=== PATIENT | male | born 1990 | race Two or more races ===

== ENCOUNTER 2024-08-21 20:08 | Emergency (ER) | payer BC, OTHER, SELFPAY ==
[2024-08-21 20:09] VITALS: BMI 27.4
[2024-08-21 20:22] VITALS: BP 136/83; PULSE 116; RESP 20; TEMP 39.4; O2SAT 97
--- NOTE | 2024-08-21 20:33 | XR_ITS ---
Examination: PA lateral chest 2 views Technique: Upright PA lateral chest 2 views Exam date and time: August 21, 20242047 hrs. Indications: Fever chest pain today Findings: Normal heart size Lungs are clear. The osseous structures are intact Impression: No active disease
--- NOTE | 2024-08-21 20:33 | EKG_ITS ---
[facility] Test Date: 2024-08-21 Pat Name: JONATHAN HENDERSON Department: Room: - Gender: Male Senior It Engineer: : 1990 Requested By: Dany Campbell ([facility]) Order Number: [id number] Reading MD: Dany Campbell ([facility]) Measurements Intervals [place] Rate: 107 P: 56 DE: 124 QRS: 66 QRSD: 84 T: 47 QT: 308 QTc: 412 Interpretive Statements SINUS TACHYCARDIA POSSIBLE LEFT ATRIAL ENLARGEMENT [-0.1mV P-WAVE IN V1/V2] NONSPECIFIC T-WAVE ABNORMALITY ABNORMAL RHYTHM ECG No previous ECG available for comparison /store/S0/[id number].pdf
--- NOTE | 2024-08-21 20:34 | PD.EDRME ---
Rapid Medical Screening Exam RME Arrival date/time: 08/21/24 20:08 34-year-old male past medical history of gallstones presents emergency department complaining of headache, fever, sore throat, and bodyaches that have been ongoing for 1 day. Chief Complaint: Dental/Oral/Throat Time Seen by Provider: 08/21/24 20:25 Vital signs: Vital Signs Temperature 103.0 F H 08/21/24 20:22 Pulse Rate 116 H 08/21/24 20:22 Respiratory Rate 20 08/21/24 20:22 Blood Pressure 136/83 H 08/21/24 20:22 Pulse Oximetry (%) 97 08/21/24 20:22 Oxygen Delivery Method Room Air 08/21/24 20:22 Vital signs reviewed by provider: Yes
[2024-08-21] MEDS: IBUPROFEN TAB 600 MG TABLET PO (20:43)
[2024-08-21] MEDS: ACETAMINOPHEN 500 MG TABLET 1000 MG PO (20:43)
[2024-08-21 20:59] LABS: Lactate (Lactic Acid) 1.1 mMol/L (0.4-2.0)
[2024-08-21 21:00] LABS: Basophils % (Auto) 0 % (0-2.5); Eosinophils % (Auto) 0 % (0-10); Hematocrit 43.1 % (41.0-53.0); Hemoglobin 15.8 g/dL (13.5-16.0); Immature Granulocytes % (Auto) 0 % (0-0); Immature Granulocytes Auto 0.06 Thou/mm3 (0.00-0.00); Lymphocytes # (Auto) 1.5 Thou/mm3 (1.0-4.8); Lymphocytes % (Auto) 11 % (10-50); Mean Corpuscular HGB Conc 36.7 g/dl (31.0-37.0); Mean Corpuscular Hemoglobin 30.6 pg (25.0-35.0); Mean Corpuscular Volume 84 fL (80-100); Monocytes # (Auto) 0.9 Thou/mm3 (0.0-0.8); Monocytes % (Auto) 6 % (0-12); Neutrophils # (Auto) 11.5 Thou/mm3 (1.8-7.7); Neutrophils % (Auto) 83 % (37-80); Nucleated Red Blood Cell % 0 /100 WBC (0); Platelet Count 207 Thou/mm3 (140-440); RDW Standard Deviation 37.1 fL (35.1-43.9); Red Blood Count 5.16 Miln/mm3 (4.50-5.90); White Blood Count 13.9 Thou/mm3 (3.8-10.6)
[2024-08-21 21:00] LABS: Strep A Rapid Positive (Negative)
[2024-08-21 21:17] LABS: B-Type Natriuretic Peptide < 0 pg/mL (0-100)
[2024-08-21 21:25] LABS: Alanine Aminotransferase 23 U/L (10-49); Albumin, Serum 4.7 gm/dL (3.5-5.0); Albumin/Globulin Ratio 1.7 (1.2-2.2); Alkaline Phosphatase 74 U/L (46-116); Anion Gap 6 (7-16); Aspartate Amino Transferase 14 U/L (0-34); BUN/Creatinine Ratio 12 Ratio (12-20); Blood Urea Nitrogen 12 mg/dL (9-23); Calcium 9.5 mg/dL (8.3-10.6); Calcium (Corrected) 9.5 mg/dL (8.5-10.1); Carbon Dioxide 24.6 mMol/L (20.0-31.0); Chloride 104 mMol/L (98-107); Estimated Creatinine Clearance 101.8 mL/min (>60); Globulin 2.7 gm/dL (2.3-3.5); Glucose 118 mg/dL (74-106); INR 1.1 (0.9-1.3); Lipase 29 U/L (12-53); Magnesium 1.9 mg/dL (1.6-2.6); Osmolality,Calculated 270 (275-295); Potassium 3.4 mMol/L (3.4-5.1); Prothrombin Time 11.5 Seconds (9.0-12.2); Sodium 135 mMol/L (136-145); Total Protein 7.4 gm/dL (5.7-8.2); Troponin I < 0.002 ng/mL (0.0-0.045); eGFR > 60 See Note
[2024-08-21 22:10] LABS: Collection Type, Urine Clean Catch; Squamous Epithelial Cell,Urine 0 /hpf (0-5)
[2024-08-21 22:14] LABS: Bilirubin,Urine Negative (Negative); Blood,Urine 1+ (Negative); Clarity,Urine Clear (Clear/Hazy); Color,Urine Yellow (Lt Yel-Yel); Glucose, Urine Negative (Negative); Ketones,Urine Negative (Negative); Leukocyte Esterase,Urine Negative (Negative); Nitrite,Urine Negative (Negative); Protein,Urine 1+ (Neg - Trace); RBC,Urine 17 /hpf (0-3); Specific Gravity,Urine 1.033 (1.001-1.035); WBC,Urine 1 /hpf (0-5)
[2024-08-21 22:54] VITALS: BP 105/73; PULSE 78; RESP 16; TEMP 37.3; O2SAT 99
[2024-08-21] MEDS: PENICILLIN VK 250 MG TABLET 500 MG PO (23:29)
--- NOTE | 2024-08-22 00:54 | EDNOTE_ITS ---
Upper Respiratory Inf. RME/HPI General Chief Complaint: Dental/Oral/Throat Stated Complaint: FEVER AND SORE THROAT Time Seen by Provider: 08/21/24 20:25 Source: patient Arrival date/time: 08/21/24 20:08 34-year-old male past medical history of gallstones presents emergency department complaining of headache, fever, sore throat, and bodyaches that have been ongoing for 1 day. Mode of arrival: ambulatory Limitations: no limitations RME / HPI RME / HPI Narrative: 08/21/24 20:08 34-year-old male past medical history of gallstones presents emergency department complaining of headache, fever, sore throat, and bodyaches that have been ongoing for 1 day. Related Data Previous Rx's ?Medication ?Instructions ?Recorded acetaminophen 500 mg capsule 500 mg PO Q6H PRN pain #3 0 caps 08/21/24 ibuprofen 600 mg tablet 600 mg PO Q8H PRN pain #20 t abs 08/21/24 penicillin V potassium 500 mg 500 mg PO BID 10 days #2 0 tabs 08/21/24 tablet Allergies Allergy/AdvReac Type Severity Reaction Status Date / Time No Known Allergies Allergy Verified 08/21/24 20:12 Review of Systems Review of Systems Systems Reviewed: All systems reviewed, normal except as documented Constitutional Constitutional: Reports system reviewed and no additional complaints, except as documented, Reports body ache(s), Denies chills, Reports fever(s) and Reports headache(s) Eyes Eyes: Reports system reviewed and no additional complaints, except as documented and Denies change in vision ENT Ears, Nose, Mouth, and Throat: Reports system reviewed and no additional complaints, except as documented, Denies disequilibrium, Denies dizziness, Reports headache(s), Reports sore throat and Denies vertigo Cardiovascular Cardiovascular: Reports system reviewed and no additional complaints, except as documented, Denies chest pain and Denies dyspnea Respiratory Respiratory: Reports system reviewed and no additional complaints, except as documented, Denies chest congestion, Denies cough and Denies dyspnea Gastrointestinal Gastrointestinal: Reports system reviewed and no additional complaints, except as documented, Denies abdominal pain, Denies nausea and Denies vomiting Musculoskeletal Musculoskeletal: Reports system reviewed and no additional complaints, except as documented, Denies abnormal gait and Denies arthralgias Integumentary/Breasts Skin/Breast: Reports system reviewed and no additional complaints, except as documented, Denies erythema, Denies rash and Denies wounds Neurologic Neurologic: Reports system reviewed and no additional complaints, except as documented, Denies abnormal gait, Denies disequilibrium, Denies dizziness, Reports headache(s) and Denies vertigo Past Medical History Social History SMOKING STATUS: Current some day smoker ED Exam General Limitations: Present no limitations General appearance: Present alert and in no apparent distress Head Head exam: Present atraumatic Eye Eye exam: Present normal appearance, PERRL and EOMI ENT ENT exam: Present normal exam, normal oropharynx and mucous membranes moist Expanded ENT Exam Mouth exam: Absent drooling or trismus Throat exam: Present tonsillar erythema; Absent tonsillomegaly or tonsillar exudate Neck Neck exam: Present normal inspection, full ROM and trachea midline Chest Chest inspection: Present normal inspection and symmetric chest wall rise Respiratory Respiratory exam: Present normal lung sounds bilaterally Cardiovascular Cardiovascular exam: Present regular rate, normal rhythm and normal heart sounds Abdominal Exam Abdominal exam: Present soft and normal bowel sounds Extremities Exam Extremities exam: Present normal inspection and full ROM Back Exam Back exam: Present normal inspection and full ROM Neurological Exam Neurological exam: Present alert, oriented X3 and CN II-XII intact Psychiatric Psychiatric exam: Present normal affect and normal mood Skin Skin exam: Present warm, dry, intact and normal color Course Quality Measures none Orders Category Date Time Status Bedside COVID-19 Antigen Test NOW Care 08/21/24 20:34 Completed Bedside Influenza A&B Antigen Test NOW Care 08/21/24 20:37 Completed EKG (ED ONLY) *Do not use* NOW Care 08/21/24 20:33 Completed EKG (ED Only) Stat Exams 08/21/24 20:33 Draft XR chest 2V Stat Exams 08/21/24 20:33 Completed B-Type Natriuretic Peptide Stat Lab 08/21/24 20:47 Completed Blood Culture (Lab) Stat Lab 08/21/24 20:50 Received CBC Stat Lab 08/21/24 20:47 Completed Comprehensive Metabolic Panel Stat Lab 08/21/24 20:47 Completed Lactate (Lactic Acid) Stat Lab 08/21/24 20:47 Completed Lipase Stat Lab 08/21/24 20:47 Completed Magnesium Stat Lab 08/21/24 20:47 Completed Partial Thromboplastin Time Stat Lab 08/21/24 20:47 Completed Procalcitonin Stat Lab 08/21/24 20:47 Completed Prothrombin Time with INR Stat Lab 08/21/24 20:47 Completed Strep A Rapid Stat Lab 08/21/24 20:42 Completed Troponin I Stat Lab 08/21/24 20:47 Completed Urinalysis Stat Lab 08/21/24 22:04 Completed Urine Culture Stat Lab 08/21/24 22:04 Received Acetaminophen Tab [Tylenol ES Tab] Med 08/21/24 20:34 Discontinued 1,000 mg PO X1 ONE Ibuprofen Tab [Motrin Tab] Med 08/21/24 20:34 Discontinued 600 mg PO X1 ONE Penicillin Vk [Pen Vk] Med 08/21/24 23:24 Discontinued 500 mg PO X1 ONE Vital Signs Vital signs: Vital Signs Temperature 103.0 F H 08/21/24 20:22 Pulse Rate 116 H 08/21/24 20:22 Respiratory Rate 20 08/21/24 20:22 Blood Pressure 136/83 H 08/21/24 20:22 Pulse Oximetry (%) 97 08/21/24 20:22 Oxygen Delivery Method Room Air 08/21/24 20:22 97% room air within normal limits Procedures -ED EKG Interpretation #1: Date of EK08/21/24 Time of EK:36 Rate: 107 Interpretation: Interpreted by me EKG Impression: No acute ST-T changes, No ectopy, No ischemic changes, Sinus tachycardia and Normal QRS Upper Respiratory Infection MDM Narrative MDM Narrative:: 34-year-old male past medical history of gallstones presents emergency department complaining of headache, fever, sore throat, and bodyaches that have been ongoing for 1 day. Presentation sepsis alert was called due to patient's febrile and tachycardia. CBC remarkable for mild leukocytosis 13.9. CMP was unremarkable for any elevated LFTs or gross electro abnormalities. EKG sinus tach with normal troponin. Lactate was unremarkable. Chest x-ray was unremarkable for any pneumonic infiltrates. Strep swab positive. Fever was treated with antipyretics and heart rate came down. Patient given first dose of antibiotic and discharge on oral antibiotics for strep throat and instructed to have close follow-up with primary care provider return to emergency department for any worsening symptoms or as needed. Patient appears nontoxic and is hemodynamically stable. Patient data External records reviewed:: None Clinical information provided by:: patient Social determinants that could affect healthcare access:: none Patient has the following chronic illnesses:: See chart How is presenting disease/condition affected by chronic disease/condition?: uneffected by Evaluation data The following diagnostics were reviewed and interpreted by me:: lab results, radiology exam(s) and EKG tracing(s) Lab and/or radiology exams considered but not ordered:: Ordered Interpretation Summary: Interpreted by me Medications / Prescriptions Medications or Prescriptions considered but not ordered:: Ordered Medication administrations:: Medication Administration History Discontinued Medications Acetaminophen (Acetaminophen 500 Mg Tablet) 1,000 mg PO X1 ONE Stop: 08/21/24 20:35 Last Admin: 08/21/24 20:43 Dose: 1,000 mg Documented By: KANU Ibuprofen (Ibuprofen Tab 600 Mg Tablet) 600 mg PO X1 ONE Stop: 08/21/24 20:35 Last Admin: 08/21/24 20:43 Dose: 600 mg Documented By: KANU Penicillin V Potassium (Penicillin Vk 250 Mg Tablet) 500 mg PO X1 ONE Stop: 08/21/24 23:25 Last Admin: 08/21/24 23:29 Dose: 500 mg Documented By: KANU Given Consultations Consultation(s) initiated? (list below): No Diagnosis Upper Respiratory Differential Diagnosis: upper respiratory infection, otitis media, sinusitis, viral infection, bronchitis, influenza and pharyngitis Most likely diagnosis given after review of the tests above:: Acute streptococcal pharyngitis Admission Indicated Admission indicated?: not indicated Admission Request Was there a request for admission?: No Disposition Plan Disposition Plan: Discharge Discharge Attestation Discharge Attestation: The patient and all family members were given an opportunity to ask questions and understood the discharge instructions. Discharge instructions specifically effects, indications for sooner follow up or return to the emergency department, and the expected course of current diagnosis. Patient condition: Stable Discharge Plan Plan Patient Disposition: HOME (Self Care) Disposition Comment: Stable Prescriptions/Referrals Prescriptions/Med Rec: New penicillin V potassium 500 mg tablet 500 mg PO BID 10 Days Qty: 20 0RF ibuprofen 600 mg tablet 600 mg PO Q8H PRN (Reason: pain) Qty: 20 0RF acetaminophen 500 mg capsule 500 mg PO Q6H PRN (Reason: pain) Qty: 30 0RF Problem List Clinical Impression: Acute streptococcal pharyngitis Patient/Caregiver Discharge Instructions Discharge Activity: activity as tolerated Education Materials: ED Pharyngitis, Strep (Confirmed) Additional Instructions: Drink plenty of fluids. Take ibuprofen or Tylenol as needed for fever or pain. Take antibiotics as prescribed. Follow-up with primary care provider in 2 to 3 days. Return to emergency department for any worsening symptoms or as needed. Print Language: Finnish Stand Alone Forms: Cris Award Info., Patient Portal Info Letter PA/MOLD DESIGN ENGINEER Supervising Physician PA/MOLD DESIGN ENGINEER Supervising Physician: Dr. Gongora
== END 2024-08-21 23:31 | disposition home or self-care (01) ==
LOC: SERX 08-22 03:59
PROVIDERS: Emergency Provider Emergency Medicine; PCP Family Medicine
DX: J02.0 Streptococcal pharyngitis (principal)
CPT/HCPCS: 36415; 71046; 80053; 81001; 83605; 83690; 83735; 83880; 84145; 84484; 85025; 85610; 85730; 87040; 87086; 87400; 87651; 87811; 93005; 99283; A9270

== ENCOUNTER 2024-12-16 04:16 | Emergency (ER) | payer BC, OTHER, SELFPAY ==
[2024-12-16 04:20] VITALS: BMI 26.6
[2024-12-16 04:28] VITALS: BP 118/79; PULSE 75; RESP 18; TEMP 36.7; O2SAT 98
--- NOTE | 2024-12-16 04:32 | XR_ITS ---
Examination: Fingers, left hand 3 views 3 views Technique: AP, oblique, lateral views left hand 3 views. Exam date and time: December 16, 2024 0435 hours INDICATIONS: Injury to the hand today with third digit pain. FINDINGS: No acute fracture No dislocation No foreign body IMPRESSION: No acute fracture
--- NOTE | 2024-12-16 05:03 | EDNOTE_ITS ---
Upper Extremity Injury RME/HPI General Chief Complaint: Hand/Wrist Problems Stated Complaint: FINGER INJURY Time Seen by Provider: 12/16/24 04:31 Arrival date/time: 12/16/24 04:16 34M with no significant PMH presents to ED with L middle finger tip pain after he accidentally closed his car door on it. Patient denies bleeding. Limitations: no limitations Related Data Previous Rx's ?Medication ?Instructions ?Recorded acetaminophen 500 mg capsule 500 mg PO Q6H PRN pain #3 0 caps 08/21/24 ibuprofen 600 mg tablet 600 mg PO Q8H PRN pain #20 t abs 08/21/24 Allergies Allergy/AdvReac Type Severity Reaction Status Date / Time No Known Allergies Allergy Verified 12/16/24 04:23 Review of Systems Review of Systems Systems Reviewed: All systems reviewed, normal except as documented Constitutional Constitutional: Reports system reviewed and no additional complaints, except as documented, Denies fever(s) and Denies headache(s) ENT Ears, Nose, Mouth, and Throat: Denies disequilibrium and Denies headache(s) Cardiovascular Cardiovascular: Reports system reviewed and no additional complaints, except as documented, Denies chest pain and Denies dyspnea Respiratory Respiratory: Reports system reviewed and no additional complaints, except as documented, Denies cough and Denies dyspnea Gastrointestinal Gastrointestinal: Reports system reviewed and no additional complaints, except as documented, Denies abdominal pain, Denies nausea and Denies vomiting Musculoskeletal Musculoskeletal: Reports as per HPI and Reports arthralgias Neurologic Neurologic: Reports system reviewed and no additional complaints, except as documented, Denies confusion, Denies disequilibrium and Denies headache(s) Psychiatric Psychiatric: Denies confusion Past Medical History Social History SMOKING STATUS: Never smoker ED Exam General Limitations: Present no limitations General appearance: Present alert and in no apparent distress Head Head exam: Present atraumatic Eye Eye exam: Present normal appearance, PERRL and EOMI ENT ENT exam: Present normal exam, normal oropharynx and mucous membranes moist Neck Neck exam: Present normal inspection, full ROM and trachea midline Chest Chest inspection: Present normal inspection and symmetric chest wall rise Respiratory Respiratory exam: Present normal lung sounds bilaterally Cardiovascular Cardiovascular exam: Present regular rate, normal rhythm and normal heart sounds Abdominal Exam Abdominal exam: Present soft and normal bowel sounds Extremities Exam Extremities exam: Present full ROM Expanded Upper Extremity Exam Hand exam: Present full ROM, tenderness, swelling and subungual hematoma (L middle finger) Back Exam Back exam: Present normal inspection and full ROM Neurological Exam Neurological exam: Present alert, oriented X3 and CN II-XII intact Psychiatric Psychiatric exam: Present normal affect and normal mood Skin Skin exam: Present warm, dry, intact and normal color Course Quality Measures none Orders Category Date Time Status XR finger LT min 2V Stat Exams 12/16/24 04:32 Taken Vital Signs Vital signs: Vital Signs Temperature 98.1 F 12/16/24 04:28 Pulse Rate 75 12/16/24 04:28 Respiratory Rate 18 12/16/24 04:28 Blood Pressure 118/79 12/16/24 04:28 Pulse Oximetry (%) 98 12/16/24 04:28 Oxygen Delivery Method Room Air 12/16/24 04:28 O2 at 98 on RA and WNLs Procedures -ED Nail Trephination Time out: No Location (finger): left Location (toes): third digit Sterile prep: other (wound cleanser/alcohol) Method of drainage: needle Procedure successful: Yes Patient tolerated procedure: well Complications: bleeding and pain Extremity Injury MDM Narrative MDM Narrative:: 34M with no significant PMH presents to ED with L middle finger tip pain after he accidentally closed his car door on it. Patient denies bleeding. Physical exam reveals L middle finger subungual hematoma. Some tenderness, swelling, and bruising. ROM intact. Patient is afebrile, calm, and alert. Wet XR read no fx pending official report. Trephination done. Patient data External records reviewed:: [facility] previous records Clinical information provided by:: patient Social determinants that could affect healthcare access:: none Patient has the following chronic illnesses:: none How is presenting disease/condition affected by chronic disease/condition?: no chronic disease Evaluation data The following diagnostics were reviewed and interpreted by me:: radiology exam(s) Lab and/or radiology exams considered but not ordered:: ordered Interpretation Summary: above Medications / Prescriptions Medications or Prescriptions considered but not ordered:: not ordered Medication administrations:: n/a Consultations Consultation(s) initiated? (list below): No Diagnosis Upper Extremity Injury Differential Diagnosis: sprain and strain of wrist, fracture of wrist, finger sprain, dislocation of finger, Colles' fracture, fracture of hand and other (finger contusion, subungual hematoma) Most likely diagnosis given after review of the tests above:: finger contusion, subungual hematoma Admission Indicated Admission indicated?: not indicated Admission Request Was there a request for admission?: No Disposition Plan Disposition Plan: Discharge Discharge Attestation Discharge Attestation: The patient and all family members were given an opportunity to ask questions and understood the discharge instructions. Discharge instructions specifically effects, indications for sooner follow up or return to the emergency department, and the expected course of current diagnosis. Patient condition: Stable Discharge Plan Plan Patient Disposition: HOME (Self Care) Discharge Disposition comment: Stable Prescriptions/Referrals Prescriptions/Med Rec: No Action ibuprofen 600 mg tablet 600 mg PO Q8H PRN (Reason: pain) Qty: 20 0RF acetaminophen 500 mg capsule 500 mg PO Q6H PRN (Reason: pain) Qty: 30 0RF Problem List Clinical Impression: Contusion of finger, Subungual hematoma Patient/Caregiver Discharge Instructions Education Materials: ED Finger Contusion Additional Instructions: Please follow-up with PCP within 24-48 hours and return immediately if symptoms worsen. If problem persists, recommend outpatient PT and/or MRI follow-up. In the meantime, rest, use ice/heat, and/or compression. Print Language: Syriac Stand Alone Forms: Patient Portal Info Letter LEANDRA/MIMI Supervising Physician LEANDRA/MIMI Supervising Physician: Dr. Bailey
== END 2024-12-16 06:40 | disposition home or self-care (01) ==
LOC: SERX 06:20
PROVIDERS: Emergency Provider Emergency Medicine; PCP Physician Assistant
DX: S60.132A Contusion of left middle finger with damage to nail, initial encounter (principal); W20.8XXA Other cause of strike by thrown, projected or falling object, initial encounter; Y92.810 Car as the place of occurrence of the external cause
CPT/HCPCS: 11740; 73140; 99283